=== PATIENT | female | born 1935 | race Caucasian/White ===

== ENCOUNTER → 2018-08-08 | Outpatient (CLI) | payer OTHER ==
[~2018-08-08] MED LIST: ACET325; ASPI81EC; ATEN25 PO; ATOR10; Adult Low Dose81 MG PO; CHOL10002 PO; CLOB.05TO TOP; GLIM4; INSULANPEN; LOSA25; LOSARTAN-HCTZ1 EAC1 PO; METF500; PANT40 PO; Simvastatin20 MG PO; VITAMIN E; Vitamin B Comple1 EA
[2018-08-09 08:40] LABS: Candida species (DNA Probe) Negative (NEGATIVE); G. vaginalis (DNA Probe) Negative (NEGATIVE); T. vaginalis (DNA Probe) Negative (NEGATIVE)
== END | disposition home or self-care (01) ==
LOC: LAB SHORT 10:56 → LAB 10:56
PROVIDERS: Obstetrics & Gynecology
DX: N76.0 Acute vaginitis (principal)
CPT/HCPCS: 87480; 87510; 87660

== ENCOUNTER 2018-11-08 08:34 | Day surgery (SDC) | payer OTHER ==
--- NOTE | 2018-11-08 10:28 | NUR ---
NO HEMATOME. PT TALKATVIE AND COOPERATIVE.
--- NOTE | 2018-11-08 11:53 | NUR ---
discharged with discharge instructions and all belongings.
== END 2018-11-08 22:47 | disposition home or self-care (01) ==
LOC: RAD 08:34
PROVIDERS: Radiology Diagnostic Radiology
PROC: B01B1ZZ Fluoroscopy of Spinal Cord using Low Osmolar Contrast (ICD-10-PCS; principal; 2018-11-08 11:00)
DX: M47.27 Other spondylosis with radiculopathy, lumbosacral region (principal)
CPT/HCPCS: 62304; 72132; Q9966

== ENCOUNTER → 2019-05-22 | Outpatient (CLI) | payer OTHER ==
[2019-05-23 08:17] LABS: Candida species (DNA Probe) Positive (NEGATIVE); G. vaginalis (DNA Probe) Negative (NEGATIVE); T. vaginalis (DNA Probe) Negative (NEGATIVE)
== END ==
LOC: LAB 10:30 → LAB SHORT 10:30
PROVIDERS: Obstetrics & Gynecology
DX: N76.0 Acute vaginitis (principal)
CPT/HCPCS: 87480; 87510; 87660

== ENCOUNTER → 2019-08-20 | Outpatient (CLI) | payer OTHER ==
[2019-08-21 11:48] LABS: Candida species (DNA Probe) Positive (NEGATIVE); G. vaginalis (DNA Probe) Negative (NEGATIVE); T. vaginalis (DNA Probe) Negative (NEGATIVE)
== END | disposition home or self-care (01) ==
LOC: LAB SHORT 19:11 → LAB 19:11
PROVIDERS: Obstetrics & Gynecology
DX: N76.0 Acute vaginitis (principal)
CPT/HCPCS: 87480; 87510; 87660

== ENCOUNTER 2019-09-17 06:37 | Emergency (ER) | payer OTHER ==
[~2019-09-17] VITALS: Ht 154.9 cm; Wt 88.0 kg
[2019-09-17 07:39] LABS: BASOPHILS ABSOLUTE AUTO 0.05 K/mm3 (0.00-0.23); BASOPHILS PERCENT AUTO 1 % (0-2); EOSINOPHILS ABSOLUTE AUTO 0.29 K/mm3 (0.00-0.68); EOSINOPHILS PERCENT AUTO 4 % (0-6); Hemoglobin 10.9 g/dL (11.5-16.0); IMMATURE GRAN ABSOLUTE AUTO 0.03 K/mm3 (0.00-0.10); IMMATURE GRAN PERCENT AUTO 0 % (0-1); LYMPHOCYTES ABSOLUTE AUTO 1.85 K/mm3 (0.84-5.20); LYMPHOCYTES PERCENT AUTO 23 % (21-46); MONOCYTES ABSOLUTE AUTO 0.66 K/mm3 (0.16-1.47); MONOCYTES PERCENT AUTO 8 % (4-13); Mean Corpuscular HGB 31.6 pg (26.0-34.0); Mean Corpuscular Volume 96 fL (80-100); Mean Platelet Volume 10.3 fL (9.1-12.4); NEUTROPHILS ABSOLUTE AUTO 5.13 K/mm3 (1.96-9.15); NEUTROPHILS PERCENT AUTO 64 % (41-73); Platelet Count 190 K/mm3 (150-400); RDW Coefficient Variation 12.8 % (11.7-14.2); RDW Standard Deviation 44.9 fL (35.1-46.3); Red Blood Cell Count 3.45 M/mm3 (3.80-5.20); White Blood Cell Count 8.01 K/mm3 (4.00-11.30)
[2019-09-17 08:02] LABS: Bun/Creatinine Ratio 21.1 (12.0-20.0); Calcium, Blood 8.3 mg/dL (8.5-10.1); Potassium, Blood 3.7 mmol/L (3.5-5.5)
[2019-09-17] MEDS ORDERED: PRED20 PO (09:04)
[2019-09-17] MEDS ORDERED: ATEN25 PO (10:02)
[2019-09-17] MEDS ORDERED: TAMOXIFEN (10:03)
[2019-09-17] MEDS ORDERED: NOVOLOG100 UNIT/1 (10:03)
== END 2019-09-17 10:05 | disposition home or self-care (01) ==
LOC: ER 06:37
PROVIDERS: Emergency Medicine
DX: G89.29 Other chronic pain (principal); M54.5 Low back pain; I10 Essential (primary) hypertension; I25.10 Atherosclerotic heart disease of native coronary artery without angina pectoris; E78.5 Hyperlipidemia, unspecified; E11.40 Type 2 diabetes mellitus with diabetic neuropathy, unspecified; K21.9 Gastro-esophageal reflux disease without esophagitis; Z91.048 Other nonmedicinal substance allergy status; Z91.040 Latex allergy status; Z88.2 Allergy status to sulfonamides; Z79.899 Other long term (current) drug therapy; Z79.82 Long term (current) use of aspirin; Z79.4 Long term (current) use of insulin; Z87.891 Personal history of nicotine dependence
CPT/HCPCS: 72131; 80048; 85025; 96374; 96375; 99284-25; J2405; J3010

== ENCOUNTER → 2020-08-31 | Outpatient (CLI) | payer OTHER ==
[~2020-08-31] MED LIST changes: +NOVOLOG100 UNIT/1; +PRED20 PO; +TAMOXIFEN
== END ==
LOC: LAB SHORT 07:41 → LAB 07:41
DX: D22.39 Melanocytic nevi of other parts of face (principal)
CPT/HCPCS: 88305

== ENCOUNTER 2020-12-24 11:17 | Inpatient (IN) | payer OTHER ==
[~2020-12-24] VITALS: Ht 154.9 cm; Wt 81.7 kg
[~2020-12-24 11:17] MED LIST changes: -CHOL10002 PO; -INSULANPEN; +INSULANPEN SC; +NOVOLOG FL100 UNIT/3 SC; -NOVOLOG100 UNIT/1; +VITAMIN D31000 UNI1 PO
[2020-12-24] MEDS ORDERED: DOCU100 PO (11:35)
[2020-12-24] MEDS ORDERED: HYDCHL12.5 PO (11:35)
[2020-12-24] MEDS ORDERED: Aspir 8181 MG PO (11:35)
[2020-12-24] MEDS ORDERED: Cymbalta20 MG PO (11:36)
[2020-12-24] MEDS ORDERED: ATOR20 PO (11:36)
[2020-12-24] MEDS ORDERED: TAMO10 PO (11:36)
[2020-12-24] MEDS ORDERED: MIRAPEX0.25 M1 PO (11:37)
[2020-12-24 11:52] LABS: BASOPHILS ABSOLUTE AUTO 0.03 K/mm3 (0.00-0.23); BASOPHILS PERCENT AUTO 0 % (0-2); EOSINOPHILS ABSOLUTE AUTO 0.33 K/mm3 (0.00-0.68); EOSINOPHILS PERCENT AUTO 3 % (0-6); Hematocrit 36.2 % (33.0-51.0); Hemoglobin 12.1 g/dL (11.5-16.0); IMMATURE GRAN ABSOLUTE AUTO 0.05 K/mm3 (0.00-0.10); IMMATURE GRAN PERCENT AUTO 1 % (0-1); LYMPHOCYTES ABSOLUTE AUTO 1.82 K/mm3 (0.84-5.20); LYMPHOCYTES PERCENT AUTO 17 % (21-46); MONOCYTES ABSOLUTE AUTO 0.74 K/mm3 (0.16-1.47); MONOCYTES PERCENT AUTO 7 % (4-13); Mean Corpuscular HGB 31.3 pg (26.0-34.0); Mean Corpuscular HGB Conc 33.4 g/dL (31.5-36.5); Mean Corpuscular Volume 94 fL (80-100); Mean Platelet Volume 9.5 fL (9.1-12.4); NEUTROPHILS ABSOLUTE AUTO 7.76 K/mm3 (1.96-9.15); NEUTROPHILS PERCENT AUTO 72 % (41-73); Platelet Count 220 K/mm3 (150-400); RDW Coefficient Variation 13.4 % (11.7-14.2); RDW Standard Deviation 45.3 fL (35.1-46.3); Red Blood Cell Count 3.87 M/mm3 (3.80-5.20); White Blood Cell Count 10.73 K/mm3 (4.00-11.30)
[2020-12-24 12:31] LABS: Prothrombin Time Results 10.8 Sec (9.7-11.5)
[2020-12-24 12:33] LABS: Albumin, Blood 3.1 g/dL (3.4-5.0); Albumin/Globulin Ratio 0.8 (0.8-1.8); Bilirubin, Total 0.7 mg/dL (0.1-1.0); Bun/Creatinine Ratio 24.1 (12.0-20.0); Calcium, Blood 9.2 mg/dL (8.5-10.1); Creatinine, Blood 1.12 mg/dL (0.40-1.00); Total Protein, Blood 7.1 g/dL (6.4-8.2)
[2020-12-24 14:05] LABS: SARS-Cov-2 (COVID-19) PCR, MMC NEGATIVE (NEGATIVE)
[2020-12-24] MEDS ORDERED: OXYC5 PO (14:44)
[2020-12-24] MEDS ORDERED: NEURONTIN300 MG PO (14:44)
[2020-12-24] MEDS ORDERED: AMLODIPINE BESYL5 MG PO (14:45)
[2020-12-24] MEDS ORDERED: LOSA50 PO (14:50)
[2020-12-24 16:06] LABS: Hematocrit 34.8 % (33.0-51.0); Hemoglobin 11.7 g/dL (11.5-16.0)
--- NOTE | 2020-12-24 18:43 | NUR ---
Yeni Santos is a 85 old female admitted with left lower quadrant pain related to GI bleed diverculitis. Alert and oriented x3, able to make needs known. Denies any nausea . Covid-19 negative per ER report. Vital signs are stable. Pt is on observation for now.On Insulin coverage for blood sugar.Used walker for ambulation with SBA. ON clear liquid diet , continue to monitor.
[2020-12-24 20:37] LABS: Hematocrit 40.9 % (33.0-51.0)
[2020-12-25 03:01] LABS: BASOPHILS ABSOLUTE AUTO 0.04 K/mm3 (0.00-0.23); BASOPHILS PERCENT AUTO 0 % (0-2); EOSINOPHILS ABSOLUTE AUTO 0.28 K/mm3 (0.00-0.68); EOSINOPHILS PERCENT AUTO 3 % (0-6); Hematocrit 38.1 % (33.0-51.0); IMMATURE GRAN ABSOLUTE AUTO 0.04 K/mm3 (0.00-0.10); IMMATURE GRAN PERCENT AUTO 0 % (0-1); LYMPHOCYTES ABSOLUTE AUTO 2.11 K/mm3 (0.84-5.20); LYMPHOCYTES PERCENT AUTO 22 % (21-46); MONOCYTES ABSOLUTE AUTO 0.84 K/mm3 (0.16-1.47); MONOCYTES PERCENT AUTO 9 % (4-13); Mean Corpuscular HGB 31.3 pg (26.0-34.0); Mean Corpuscular HGB Conc 34.1 g/dL (31.5-36.5); Mean Corpuscular Volume 92 fL (80-100); Mean Platelet Volume 9.1 fL (9.1-12.4); NEUTROPHILS ABSOLUTE AUTO 6.35 K/mm3 (1.96-9.15); NEUTROPHILS PERCENT AUTO 66 % (41-73); Platelet Count 206 K/mm3 (150-400); RDW Coefficient Variation 13.3 % (11.7-14.2); RDW Standard Deviation 44.8 fL (35.1-46.3); Red Blood Cell Count 4.16 M/mm3 (3.80-5.20); White Blood Cell Count 9.66 K/mm3 (4.00-11.30)
[2020-12-25 03:55] LABS: Albumin, Blood 3.1 g/dL (3.4-5.0); Albumin/Globulin Ratio 0.8 (0.8-1.8); Calcium, Blood 8.7 mg/dL (8.5-10.1); Creatinine, Blood 0.94 mg/dL (0.40-1.00); Potassium, Blood 4.1 mmol/L (3.5-5.5); Total Protein, Blood 7.1 g/dL (6.4-8.2)
--- NOTE | 2020-12-25 05:23 | NUR ---
PT RESTING IN BED MAKING NO COPLAINTS AT THIS TIME. NO BM'S THIS SHIFT AND NO OTHER SOURSES OF BLEED NOTED. PT REMAINS ALERT AND ORIENTED X4, A GOOD HISTORIAN AND SLEPT FOR MOST OF THE NIGHT. IV RINNUNNG AT 100 AND WNL. STAFF WILL CONTINUE TO MONITOR. .
[2020-12-25 08:46] LABS: Hematocrit 38.7 % (33.0-51.0)
[2020-12-25 14:45] LABS: Hematocrit 43.1 % (33.0-51.0); Hemoglobin 14.6 g/dL (11.5-16.0)
--- NOTE | 2020-12-25 15:01 | NUR ---
12/25/20- per chart review with Dr. Burnham, pt will be able to leave after GI has seen the pt and signed off. Spoke with pt over the phone and she reports that she lives with her daughter and KELLEY in their home. They are out of town but her granddaughter came to the home to help care for her. Pt states that their home is a single story home with working utilities and she is able to return home at discharge. There are no stairs to get in the home, they have a ramp in place. Pt states that her granddaughter is Melissa Champagne [phone]. The pharmacy that she uses is [facility] in [place]. [facility] f/u appt with pt on 12/30/20 @ [id number] with Sandy Boyer.
== END 2020-12-25 18:11 | disposition home or self-care (01) | DRG 393 ==
LOC: ER 11:17 → MEDS 14:42
PROVIDERS: Student in an Organized Health Care Education/Training Program; ADMIT Family Medicine
DX: K55.9 Vascular disorder of intestine, unspecified (principal); K57.31 Diverticulosis of large intestine without perforation or abscess with bleeding; Z20.822 Contact with and (suspected) exposure to COVID-19; I25.10 Atherosclerotic heart disease of native coronary artery without angina pectoris; K21.9 Gastro-esophageal reflux disease without esophagitis; E78.5 Hyperlipidemia, unspecified; I10 Essential (primary) hypertension; E86.0 Dehydration; E11.319 Type 2 diabetes mellitus with unspecified diabetic retinopathy without macular edema; E66.9 Obesity, unspecified; E11.40 Type 2 diabetes mellitus with diabetic neuropathy, unspecified; Z85.3 Personal history of malignant neoplasm of breast; Z90.49 Acquired absence of other specified parts of digestive tract; Z98.890 Other specified postprocedural states; Z88.2 Allergy status to sulfonamides; Z88.8 Allergy status to other drugs, medicaments and biological substances; Z79.82 Long term (current) use of aspirin; Z79.899 Other long term (current) drug therapy
CPT/HCPCS: 36415; 80053; 82947; 85014; 85018; 85025; 85610; 85730; 93005; 93010; 96365; 96366; 96367; 96375; 99285-25; A9270; C9113; J0696; J1815; U0004

== ENCOUNTER 2021-04-30 08:09 | Day surgery (SDC) | payer OTHER ==
[~2021-04-30] VITALS: Ht 154.9 cm; Wt 82.8 kg
[~2021-04-30 08:09] MED LIST changes: +AMLODIPINE BESYL5 MG PO; +ATOR20 PO; +Aspir 8181 MG PO; +Cymbalta20 MG PO; +DOCU100 PO; +GLIM2; +HYDCHL12.5 PO; +LOSA50 PO; +MIRAPEX0.25 M1 PO; +NEURONTIN300 MG PO; +OXYC5 PO; +TAMO10 PO
[2021-04-30] MEDS ORDERED: LOSA25 PO (08:42)
== END 2021-04-30 11:00 | disposition home or self-care (01) ==
LOC: ORSCSDS 08:09
PROVIDERS: Internal Medicine Gastroenterology
PROC: 0DBL8ZX Excision of Transverse Colon, Via Natural or Artificial Opening Endoscopic, Diagnostic (ICD-10-PCS; principal; 2021-04-30 09:45)
PROC: 0DBK8ZX Excision of Ascending Colon, Via Natural or Artificial Opening Endoscopic, Diagnostic (ICD-10-PCS; principal; 2021-04-30 09:45)
PROC: 0DBM8ZX Excision of Descending Colon, Via Natural or Artificial Opening Endoscopic, Diagnostic (ICD-10-PCS; principal; 2021-04-30 09:45)
DX: Z12.11 Encounter for screening for malignant neoplasm of colon (principal); Z86.010 Personal history of colon polyps; Z80.0 Family history of malignant neoplasm of digestive organs; D12.3 Benign neoplasm of transverse colon; D12.2 Benign neoplasm of ascending colon; D12.4 Benign neoplasm of descending colon; K57.30 Diverticulosis of large intestine without perforation or abscess without bleeding; K64.8 Other hemorrhoids; K64.4 Residual hemorrhoidal skin tags; I10 Essential (primary) hypertension; E11.9 Type 2 diabetes mellitus without complications; Z79.4 Long term (current) use of insulin; Z86.73 Personal history of transient ischemic attack (TIA), and cerebral infarction without residual deficits; Z87.891 Personal history of nicotine dependence; Z85.3 Personal history of malignant neoplasm of breast; Z79.899 Other long term (current) drug therapy; Z79.82 Long term (current) use of aspirin
CPT/HCPCS: 82947; 88305; J2704; J7120

== ENCOUNTER → 2021-06-03 | Outpatient (CLI) | payer OTHER ==
[~2021-06-03] MED LIST changes: +LOSA25 PO
[2021-06-04 11:27] LABS: Candida species (DNA Probe) Negative (NEGATIVE); G. vaginalis (DNA Probe) Negative (NEGATIVE); T. vaginalis (DNA Probe) Negative (NEGATIVE)
== END | disposition home or self-care (01) ==
LOC: LAB SHORT 09:15 → LAB 09:15
PROVIDERS: Obstetrics & Gynecology
DX: N76.0 Acute vaginitis (principal)
CPT/HCPCS: 87480; 87510; 87660

== ENCOUNTER 2021-07-15 05:35 | Observation (INO) | payer OTHER ==
[~2021-07-15] VITALS: Ht 154.9 cm; Wt 85.3 kg
[2021-07-15 05:56] LABS: BASOPHILS ABSOLUTE AUTO 0.04 K/mm3 (0.00-0.23); BASOPHILS PERCENT AUTO 0 % (0-2); EOSINOPHILS ABSOLUTE AUTO 0.08 K/mm3 (0.00-0.68); EOSINOPHILS PERCENT AUTO 1 % (0-6); Hematocrit 35.8 % (33.0-51.0); Hemoglobin 12.1 g/dL (11.5-16.0); IMMATURE GRAN ABSOLUTE AUTO 0.07 K/mm3 (0.00-0.10); IMMATURE GRAN PERCENT AUTO 1 % (0-1); LYMPHOCYTES ABSOLUTE AUTO 0.68 K/mm3 (0.84-5.20); LYMPHOCYTES PERCENT AUTO 5 % (21-46); MONOCYTES ABSOLUTE AUTO 1.41 K/mm3 (0.16-1.47); MONOCYTES PERCENT AUTO 11 % (4-13); Mean Corpuscular HGB 31.8 pg (26.0-34.0); Mean Corpuscular HGB Conc 33.8 g/dL (31.5-36.5); Mean Corpuscular Volume 94 fL (80-100); Mean Platelet Volume 9.3 fL (9.1-12.4); NEUTROPHILS ABSOLUTE AUTO 10.97 K/mm3 (1.96-9.15); NEUTROPHILS PERCENT AUTO 83 % (41-73); Platelet Count 177 K/mm3 (150-400); RDW Coefficient Variation 13.5 % (11.7-14.2); White Blood Cell Count 13.25 K/mm3 (4.00-11.30)
[2021-07-15 06:10] LABS: Albumin/Globulin Ratio 0.8 (0.8-1.8); Bilirubin, Total 1.4 mg/dL (0.1-1.0); Bun/Creatinine Ratio 20.2 (12.0-20.0); Calcium, Blood 8.9 mg/dL (8.5-10.1); Creatinine, Blood 1.24 mg/dL (0.40-1.00); Potassium, Blood 4.2 mmol/L (3.5-5.5)
[2021-07-15 06:18] LABS: Magnesium, Blood 2.2 mg/dL (1.6-2.4)
[2021-07-15 07:17] LABS: Source, Urine Straight Cath
[2021-07-15 07:20] LABS: Bilirubin, Urine Neg (Neg); Blood, Urine 4+ (Neg); Glucose Qualitative, Urine Neg (Neg); Ketones, Urine Neg (Neg); Leukocyte Esterase, Urine 3+ (Neg); Nitrite, Urine Pos (Neg); Protein, Urine 3+ (Neg); Urobilinogen, Urine NORM (Normal)
[2021-07-15 07:20] LABS: Influenza A, PCR NEGATIVE (NEGATIVE); Influenza B, PCR NEGATIVE (NEGATIVE); Resp Syncytial Virus, PCR NEGATIVE (NEGATIVE); SARS-Cov-2 (COVID-19) PCR, MMC NEGATIVE (NEGATIVE)
[2021-07-15 07:50] LABS: Appearance, Urine Hazy (Clear); Color, Urine Yellow (P-Yellow)
[2021-07-15 07:54] LABS: Bacteria Many /hpf; Squamous Epithelial Cells Few /hpf (Few); White Blood Cells, Urine 25-50 /hpf (0-5)
[2021-07-15] MEDS ORDERED: NITR100CA PO (09:39)
--- NOTE | 2021-07-15 13:00 | NUR ---
PT ARRIVED TO THE MEDICAL FLOOR VIA GURNEY FORM THE ER A/OX4, PLEASANT AND COOPERATIVE. THE PT APPEARED TO BE BREATHING EASILY ON RA AT THIS TIME. PT WAS ORIENTED TO THE ROOM LAYOUT AND CALL SYSTEM. PT ANSWERED QUESTIONS APROPRIATLY. CALL LIGHT IN REACH, WILL CONTINUE TO MONITOR AND ASSESS FOR CHANGES
[2021-07-15] MEDS ORDERED: ATEN25 PO (13:13)
--- NOTE | 2021-07-15 16:38 | NUR ---
PT IS A/OX4. PLEASANT AND COOPERATIVE, UP WITH MINIMAL ASSIST TO THE BSC AND TO THE CHAIR. THE PT WAS MEDICATED FOR RIGHT ANKLE PAIN. PT APPEARS TO BE BREATHING EASILY ON RA AT THIS TIME. CALL LIGHT IN REACH. WILL CONTINUE TO MONITOR AND ASSESS FOR CHANGES
[2021-07-16 05:00] LABS: BASOPHILS ABSOLUTE AUTO 0.03 K/mm3 (0.00-0.23); BASOPHILS PERCENT AUTO 0 % (0-2); EOSINOPHILS ABSOLUTE AUTO 0.19 K/mm3 (0.00-0.68); EOSINOPHILS PERCENT AUTO 2 % (0-6); Hemoglobin 11.5 g/dL (11.5-16.0); IMMATURE GRAN ABSOLUTE AUTO 0.05 K/mm3 (0.00-0.10); IMMATURE GRAN PERCENT AUTO 1 % (0-1); LYMPHOCYTES ABSOLUTE AUTO 1.82 K/mm3 (0.84-5.20); LYMPHOCYTES PERCENT AUTO 18 % (21-46); MONOCYTES ABSOLUTE AUTO 1.28 K/mm3 (0.16-1.47); MONOCYTES PERCENT AUTO 13 % (4-13); Mean Corpuscular HGB 31.9 pg (26.0-34.0); Mean Corpuscular HGB Conc 32.9 g/dL (31.5-36.5); Mean Corpuscular Volume 97 fL (80-100); Mean Platelet Volume 9.3 fL (9.1-12.4); NEUTROPHILS ABSOLUTE AUTO 6.53 K/mm3 (1.96-9.15); NEUTROPHILS PERCENT AUTO 66 % (41-73); Platelet Count 166 K/mm3 (150-400); RDW Coefficient Variation 13.6 % (11.7-14.2); RDW Standard Deviation 48.9 fL (35.1-46.3)
--- NOTE | 2021-07-16 05:10 | NUR ---
SHIFT SUMMARY PT IS AN 86 Y/O FEMALE, ADMITTED FOR UTI. PT HAD A GLF AT HOME PRIOR TO ADMISSION, AND HAS A RIGHT ANKLE FX. PT STATED THAT HER PREVIOUS PAIN REGIMEN WAS NOT SUFFICIENTLY COVERING HER PAIN. HOSPITALIST DR NEFF WAS NOTIFIED, AND OXYCODONE INCREASED TO 5-10 MG EVERY 4 HOURS. PT MEDICATED WITH 10 MG, AND SLEPT WELL THROUGH THE NIGHT. NO C/O NAUSEA OR SOB. VITAL SIGNS STABLE. NO ACUTE CHANGES IN PT CONDITION NOTED DURING THE NIGHT. WILL CONTINUE TO MONITOR AND TREAT PER EMAR UNTIL HAND OFF TO DAY SHIFT RN.
[2021-07-16 05:27] LABS: Albumin, Blood 2.7 g/dL (3.4-5.0); Albumin/Globulin Ratio 0.7 (0.8-1.8); Bilirubin, Total 1.1 mg/dL (0.1-1.0); Bun/Creatinine Ratio 18.3 (12.0-20.0); Calcium, Blood 8.7 mg/dL (8.5-10.1); Creatinine, Blood 1.2 mg/dL (0.40-1.00); Globulin, Blood 3.9 g/dL (2.2-4.0); Magnesium, Blood 2.4 mg/dL (1.6-2.4); Phosphorus, Blood 3.3 mg/dL (2.5-4.9); Potassium, Blood 4.2 mmol/L (3.5-5.5); Total Protein, Blood 6.6 g/dL (6.4-8.2)
--- NOTE | 2021-07-16 09:47 | NUR ---
Responding to Spiritual Care Request Pt. is in bed and awake. Pt. welcomes my visit. Pt. is pleasant but unsettled about concerns of her mobility because of injuries from her fall. Pt. verbalizes limited movement in ankle/foot. Listen empatheticially and provide pastoral encouragement. Establish rapport. Pt. displays evidence of lower stress and less anxiety over her condition. Prayed with Pt. Pt. verbalized gratitude for the spiritual care visit.
--- NOTE | 2021-07-16 18:12 | NUR ---
SHIFT SUMMARY PT HAS BEEN RESTING INBED ALL DAY. SHE HAS AN FRACTURED RIGHT ANGKLE, DR RAMIREZ CAME UP AND WRAPPED IT IN A SOFT BRACE. PT TOLERATED THAT WELL, STILL NO BM. MIRALAX GIVEN PER JUN. NOT ABLE TO COLLECT BM FOR LAB. PT SLEEPING MOST OF DAY. WAS VISITED BY SPIRITUAL CARE AND SEEMED ENCOURAGED AFTER THAT VISIT. WILL CONTINUE TO MONITOR.
[2021-07-17 04:46] LABS: BASOPHILS ABSOLUTE AUTO 0.05 K/mm3 (0.00-0.23); BASOPHILS PERCENT AUTO 1 % (0-2); EOSINOPHILS ABSOLUTE AUTO 0.57 K/mm3 (0.00-0.68); EOSINOPHILS PERCENT AUTO 6 % (0-6); Hematocrit 34.5 % (33.0-51.0); Hemoglobin 11.4 g/dL (11.5-16.0); IMMATURE GRAN ABSOLUTE AUTO 0.09 K/mm3 (0.00-0.10); IMMATURE GRAN PERCENT AUTO 1 % (0-1); LYMPHOCYTES ABSOLUTE AUTO 2.05 K/mm3 (0.84-5.20); LYMPHOCYTES PERCENT AUTO 23 % (21-46); MONOCYTES ABSOLUTE AUTO 1.32 K/mm3 (0.16-1.47); MONOCYTES PERCENT AUTO 15 % (4-13); Mean Corpuscular HGB 31.8 pg (26.0-34.0); Mean Corpuscular Volume 96 fL (80-100); Mean Platelet Volume 9.5 fL (9.1-12.4); NEUTROPHILS ABSOLUTE AUTO 4.91 K/mm3 (1.96-9.15); NEUTROPHILS PERCENT AUTO 55 % (41-73); Platelet Count 185 K/mm3 (150-400); RDW Coefficient Variation 13.4 % (11.7-14.2); RDW Standard Deviation 47.9 fL (35.1-46.3); Red Blood Cell Count 3.58 M/mm3 (3.80-5.20); White Blood Cell Count 8.99 K/mm3 (4.00-11.30)
--- NOTE | 2021-07-17 04:54 | NUR ---
SHIFT SUMMARY NO ACUTE CHANGES TO REPORT THIS SHIFT, PT HAS SLEPT MOST OF THE NIGHT. PT UP WITH 1 ASSISTACE TO THE BATHROOM. SOFT CAST IN PLACE TO RIGHT ANKLE, PLACED BY DR. RAMIREZ YESTERDAY. PT HAS NOT COMPLAINED OF PAIN THIS SHIFT. SHE DENIES N/T IN EXTREMITIES. VITALS STABLE. IVF INFUSING. BED IN LOWEST POSITION, CALL LIGHT WITHIN REACH.
[2021-07-17 06:25] LABS: Albumin, Blood 2.5 g/dL (3.4-5.0); Anion Gap 5 mmol/L (6-16); Blood Urea Nitrogen 18 mg/dL (8-24); Bun/Creatinine Ratio 17.1 (12.0-20.0); CO2, Blood 27 mmol/L (21-32); Calcium, Blood 8.5 mg/dL (8.5-10.1); Chloride, Blood 107 mmol/L (98-108); Creatinine, Blood 1.05 mg/dL (0.40-1.00); Glomerular Filtration Rate 50 (60-); Glucose, Blood 135 mg/dL (70-99); Magnesium, Blood 2.2 mg/dL (1.6-2.4); Potassium, Blood 4.2 mmol/L (3.5-5.5); Sodium, Blood 139 mmol/L (136-145)
[2021-07-17] MEDS ORDERED: CEFD300 PO (15:57)
--- NOTE | 2021-07-17 17:17 | NUR ---
DISCHARGE PT WAS DISCHARGED HOME AT 1630. IV DISCONTINUE. PT TEACHING ABOUT NON WEIGHT BEARING AND PROPER BODY MECHANICS WAS REINFORNCED. ALL MEDICATIONS FAXED AND DISCHARGE PAPERWORK HANDED OVER.
== END 2021-07-17 16:46 | disposition home health service (06) ==
LOC: ER 05:35 → MEDS 05:36
PROVIDERS: Emergency Medicine; Family Medicine; Student in an Organized Health Care Education/Training Program; ADMIT Hospitalist
DX: N39.0 Urinary tract infection, site not specified (principal); E86.0 Dehydration; R11.2 Nausea with vomiting, unspecified; R19.7 Diarrhea, unspecified; S82.891A Other fracture of right lower leg, initial encounter for closed fracture; W18.30XA Fall on same level, unspecified, initial encounter; I12.9 Hypertensive chronic kidney disease with stage 1 through stage 4 chronic kidney disease, or unspecified chronic kidney disease; E11.22 Type 2 diabetes mellitus with diabetic chronic kidney disease; N18.30 Chronic kidney disease, stage 3 unspecified; E11.319 Type 2 diabetes mellitus with unspecified diabetic retinopathy without macular edema; E78.5 Hyperlipidemia, unspecified; I25.10 Atherosclerotic heart disease of native coronary artery without angina pectoris; G25.81 Restless legs syndrome; K21.9 Gastro-esophageal reflux disease without esophagitis; G89.4 Chronic pain syndrome; I25.2 Old myocardial infarction; Z86.73 Personal history of transient ischemic attack (TIA), and cerebral infarction without residual deficits; Z95.5 Presence of coronary angioplasty implant and graft; Z20.822 Contact with and (suspected) exposure to COVID-19
CPT/HCPCS: 0241U; 36415; 71046; 73610; 80053; 80069; 81001; 82947; 83735; 84100; 84484; 85025; 87077; 87086; 87186; 93005; 93010; 96372; 96374; 96376; 97116; 97162; 97164; 97165; 97530; 97535; 99285-25; A9270; G0378; J0696; J1650; J1815; J7030

== ENCOUNTER → 2022-12-22 | Outpatient (CLI) | payer OTHER ==
[~2022-12-22] MED LIST changes: +CEFD300 PO; +NITR100CA PO
== END ==
LOC: LAB SHORT 15:48 → PLD 15:48
DX: D48.5 Neoplasm of uncertain behavior of skin (principal)
CPT/HCPCS: 88305

== ENCOUNTER → 2023-03-28 | Outpatient (CLI) | payer OTHER ==
[2023-03-28 10:53] LABS: Source, Urine Clean Catch
[2023-03-28 12:56] LABS: Appearance, Urine Cloudy (Clear); Bilirubin, Urine Neg (Neg); Blood, Urine 5+ (Neg); Glucose Qualitative, Urine Neg (Neg); Ketones, Urine Neg (Neg); Leukocyte Esterase, Urine 1+ (Neg); Nitrite, Urine Neg (Neg); Protein, Urine 3+ (Neg); Urobilinogen, Urine 1+ (Normal)
[2023-03-28 13:11] LABS: Color, Urine Amber (P-Yellow)
[2023-03-28 13:12] LABS: Bacteria Few /hpf; Red Blood Cells, Urine TNTC /hpf (0-2); Squamous Epithelial Cells Few /hpf (Few)
== END ==
LOC: LAB 10:51 → LAB SHORT 10:51
PROVIDERS: Obstetrics & Gynecology
DX: N84.1 Polyp of cervix uteri (principal); N23 Unspecified renal colic
CPT/HCPCS: 81001; 87086; 88305

== ENCOUNTER → 2024-09-19 | Outpatient (CLI) | payer OTHER ==
[~2024-09-19] MED LIST changes: +AZIT250 PO
== END ==
LOC: LAB 11:44 → LAB SHORT 11:44
DX: R30.0 Dysuria (principal)
CPT/HCPCS: 87077; 87086; 87186

== ENCOUNTER → 2024-11-01 | Outpatient (CLI) | payer OTHER | LOC: LAB 18:21 → LAB SHORT 18:21 | DX: N39.0 Urinary tract infection, site not specified (principal); R31.9 Hematuria, unspecified | CPT/HCPCS: 87077; 87086; 87186 ==

== ENCOUNTER → 2024-12-11 | Outpatient (CLI) | payer OTHER | END | disposition home or self-care (01) | LOC: LAB 18:22 → LAB SHORT 18:22 | DX: N39.0 Urinary tract infection, site not specified (principal) | CPT/HCPCS: 87077; 87086; 87186 ==

== ENCOUNTER 2024-12-17 11:05 | Emergency (ER) | payer OTHER ==
[~2024-12-17] VITALS: Ht 154.9 cm; Wt 77.1 kg
[2024-12-17] MEDS ORDERED: CEFDINIR300 M4 PO (15:51)
[2024-12-17 16:15] VITALS: BP 186/60
== END 2024-12-17 16:52 | disposition home or self-care (01) ==
LOC: ER 11:05
DX: S06.5X0A Traumatic subdural hemorrhage without loss of consciousness, initial encounter (principal); I10 Essential (primary) hypertension; E11.40 Type 2 diabetes mellitus with diabetic neuropathy, unspecified; K21.9 Gastro-esophageal reflux disease without esophagitis; Z79.2 Long term (current) use of antibiotics; Z91.040 Latex allergy status; Z79.4 Long term (current) use of insulin; Z79.899 Other long term (current) drug therapy; Z79.82 Long term (current) use of aspirin; W18.30XA Fall on same level, unspecified, initial encounter
CPT/HCPCS: 70450; 72125; 82947; 99285-25

== ENCOUNTER → 2025-01-26 | Outpatient (CLI) | payer OTHER ==
[~2025-01-26] MED LIST changes: +CEFDINIR300 M4 PO
== END ==
LOC: LAB SHORT 16:35 → LAB 16:35
DX: N39.0 Urinary tract infection, site not specified (principal)
CPT/HCPCS: 87077; 87086; 87186